=== PATIENT | male | born 1960 | race Caucasian/White ===

== ENCOUNTER → 2023-11-26 16:48 | Outpatient (REF) | payer OTHER, SELFPAY | LOC: RAD 16:48 | PROVIDERS: ATTENDING PHYSICIAN Specialist; FAMILY PHYSICIAN Family Medicine | DX: R33.8 Other retention of urine (principal) | CPT/HCPCS: 76770 ==

== ENCOUNTER 2023-12-08 16:56 | Emergency (ER) | payer OTHER, SELFPAY ==
[2023-12-08 17:17] VITALS: BP 151/96
--- NOTE | 2023-12-08 19:48 | ED.MUSCINJ ---
HPI-Injury
General
Chief Complaint: Musculo-Skeletal Complaint
Source: patient
Exam Limitations: none
Time Seen by Provider: 12/08/23 19:29
Nursing documentation reviewed up to this point in time: agreed with
History of Present Illness-Injury
Initial Injury comments:
63 yo male fell 4-5 ft from ladder landing on rubber mat on concrete floor of gym at 3 p.m. Did not hit head, fell back and struck right elbow on floor. Has pain in the elbow. Denies any other injury.
Past History
Past History
ED Past Medical History: HTN, Psychiatric (depression, anxiety), Other (MRSA) and Other (depression, recently diagnosed low testosterone, kidney stones, renal insufficiency, anxiety, depression)
ED Past Surgical History: Orthopedic (Biceps tendon surgery, bilateral torn quads repaired.)
Social History
Tobacco: Non-smoker
Alcohol: Former
Drug: None
Personal:
Living: with family
Employment: Employed
Family History
Family History: Other (Sister had a stroke at age 50, father has had a history of prostatic cancer)
Review of Systems
Review of Systems
Allergies reviewed?: Yes
All Other Systems: ROS reviewed and negative except as documented in HPI and ROS
Musculoskeletal: Reports other (right elbow pain)
Skin: Reports no symptoms
Neurological: Denies weakness or numbness
Phy Exam
Physical Exam
Physical Exam:
PHYSICAL EXAMINATION:
General: no apparent distress, not acutely ill
Neuro: alert and oriented.
Psychiatric: well kept. interactive and cooperative
Musculoskeletal: Tender and mild swelling right elbow. Full ROM of RUE. Distal neuro vascular intact. Moves with ease
Skin: Warm, pink.
Injury Course
Orders/Labs/Results
Orders:
Orders
12/08/23 16:57
Elbow, 3 View, Right [CR Elbow - Right Min 3 Views] Urgent
Comment:
Reason For Exam: pain, swelling
MDM/Problems Addressed
MDM/Problems Addressed:
63 yo male fell 4-5 ft from ladder landing on rubber mat on concrete floor of gym at 3 p.m. Did not hit head, fell back and struck right elbow on floor. Has pain in the elbow. Denies any other injury.
Xray right ankle: radiology report read: IMPRESSION: No radiographic evidence for acute fracture or dislocation.
There is a moderate sized spur/enthesophyte arising from the olecranon process. There is soft tissue swelling dorsal to the olecranon process, which could represent contusion and/or olecranon bursitis.
Pt with good ROM, no need for sling. He has seen Dr. Choe in the past and will f/u as needed.
*Critical Care Note
Total Time (30-74mins, 75-104mins- exclusive of procedures): Not Applicable
ED Attending Note
-
Portions of this chart may have been created with voice recognition software.� Occasional wrong word or��sound alike� substitutions may have occurred due to the inherent limitations of voice recognition software.
Discharge Plan
Departure
Patient Disposition: Home (Routine Discharge)
Date of Disposition: 12/08/23
Time of Disposition: 19:58
Patient with high blood pressure during this ER visit?: No
Condition: Good
Discharge Problem:
Contusion of right elbow
Instructions: Contusion (DC), Using Cold for Pain
Prescriptions:
No Action
lisinopril 10 MG tablet
10 mg PO QPM
omeprazole 20 mg Capsule,Delayed Release(Dr/Ec)
20 mg PO QPM
escitalopram oxalate [Lexapro] 20 mg Tablet
20 mg PO QPM
clonidine HCl 0.1 mg Tablet
0.1 mg PO DAILY 3 Days Qty: 3 0RF
Refresh Classic (PF) 1.4-0.6 % Dropperette
1 drp ophthalmic (eye) QIDPRN PRN (Reason: dryness) 30 Days Qty: 1 0RF
montelukast 10 mg Tablet
10 mg PO QPM 30 Days Qty: 30 0RF
ketotifen fumarate [Zaditor] 0.025 % (0.035 %) Drops
1 drp ophthalmic (eye) BID PRN (Reason: allergy symptoms) Qty: 5 0RF
magnesium oxide 500 mg capsule
500 mg PO DAILY Qty: 30 0RF
Referrals:
Dakota Arroyo MD [Family Provider] -
Scott Choe MD [Active] - As needed
Activity Restrictions/Additional Instructions:
As we discussed, our xray shows nothing broken.
Interventions
Interventions:
*General Assessment Last Done: 12/08/23 20:16
*Nursing Disposition Last Done: 12/08/23 20:16
ED-Musculoskeletal Assessment Last Done: 12/08/23 19:30
Discharge Date and Time
Discharge Date/Time: 12/08/23 20:16
Print Language: SLOVAK
== END 2023-12-08 20:16 | disposition home or self-care (01) ==
LOC: EMR 16:56
PROVIDERS: EMERGENCY PHYSICIAN Emergency Medicine; FAMILY PHYSICIAN Family Medicine
DX: S50.01XA Contusion of right elbow, initial encounter (principal); W11.XXXA Fall on and from ladder, initial encounter; I10 Essential (primary) hypertension
CPT/HCPCS: 99283; 73080

== ENCOUNTER 2023-12-17 06:44 | Day surgery (SDC) | payer OTHER, SELFPAY ==
[2023-12-16 08:41] VITALS: BMI 28.5
[2023-12-16 08:51] LABS: Hematocrit 44.6 % (39.0-52.0); Hemoglobin 15.4 g/dL (13.0-18.0); Mean Corp Hgb Conc. 34.5 g/dL (33.0-37.0); Mean Corpuscular Hgb 31.5 pg (27.0-31.0); Mean Corpuscular Volume 91.2 fL (80.0-94.0); Mean Platelet Volume 9.9 fL (7.4-10.4); Platelet Count 245 10^3/uL (130-400); Red Blood Cell Count 4.89 10^6/uL (4.70-6.10); Red Cell Dist. Width 12.2 % (11.5-14.5); White Blood Cell Count 8.3 10^3/uL (4.8-10.8)
[2023-12-17] VITALS (8 sets, daily range): BP systolic 131–153; BP diastolic 83–96; BMI 28.5
[2023-12-17] MEDS: CELEBREX 200 MG PO (11:20)
[2023-12-17] MEDS: TYLENOL 1000 MG PO (11:21)
[2023-12-17] MEDS: DILAUDID 0.25 MG IV ×2 (14:14→14:27)
== END 2023-12-17 15:30 | disposition home or self-care (01) ==
LOC: SDS 06:44
PROVIDERS: ATTENDING PHYSICIAN Orthopaedic Surgery Hand Surgery; FAMILY PHYSICIAN Family Medicine
DX: S46.311A Strain of muscle, fascia and tendon of triceps, right arm, initial encounter (principal); X58.XXXA Exposure to other specified factors, initial encounter; M70.21 Olecranon bursitis, right elbow
CPT/HCPCS: 24342; 24105; 85027; 87070; 93005; C1713

== ENCOUNTER → 2024-01-20 13:04 | Outpatient (REF) | payer OTHER, SELFPAY | LOC: EMG 13:04 | PROVIDERS: ATTENDING PHYSICIAN Physical Medicine & Rehabilitation; FAMILY PHYSICIAN Family Medicine | DX: M54.16 Radiculopathy, lumbar region (principal); R20.0 Anesthesia of skin; R20.2 Paresthesia of skin; R29.898 Other symptoms and signs involving the musculoskeletal system | CPT/HCPCS: 95886; 95911 ==

== ENCOUNTER → 2024-03-01 07:08 | Outpatient (REF) | payer OTHER, SELFPAY | LOC: MRI 3T 07:08 | PROVIDERS: ATTENDING PHYSICIAN Physical Medicine & Rehabilitation; FAMILY PHYSICIAN Family Medicine | DX: M54.16 Radiculopathy, lumbar region (principal) | CPT/HCPCS: 72148 ==

== ENCOUNTER 2024-03-03 18:51 | Outpatient (RCR) | payer OTHER, SELFPAY | END 2024-03-03 23:59 | disposition home or self-care (01) | LOC: RPT 18:51 | PROVIDERS: ATTENDING PHYSICIAN Orthopaedic Surgery Hand Surgery; FAMILY PHYSICIAN Family Medicine | DX: S46.311D Strain of muscle, fascia and tendon of triceps, right arm, subsequent encounter (principal) | CPT/HCPCS: 97110; 97140; 97162; 97535 ==

== ENCOUNTER → 2024-05-10 20:03 | Outpatient (REF) | payer OTHER, SELFPAY | LOC: MRI 3T 20:03 | PROVIDERS: ATTENDING PHYSICIAN Specialist; FAMILY PHYSICIAN Family Medicine | DX: R97.20 Elevated prostate specific antigen [PSA] (principal) | CPT/HCPCS: 72197; A9575 ==

== ENCOUNTER 2024-07-07 06:19 | Day surgery (SDC) | payer OTHER, SELFPAY ==
[2024-07-02 13:24] VITALS: BMI 29.7
[2024-07-02 14:13] LABS: Hematocrit 45.8 % (39.0-52.0); Mean Corp Hgb Conc. 34.9 g/dL (33.0-37.0); Mean Corpuscular Hgb 33.3 pg (27.0-31.0); Mean Corpuscular Volume 95.2 fL (80.0-94.0); Mean Platelet Volume 10.2 fL (7.4-10.4); Platelet Count 224 10^3/uL (130-400); Red Blood Cell Count 4.81 10^6/uL (4.70-6.10); Red Cell Dist. Width 13.2 % (11.5-14.5); White Blood Cell Count 8.4 10^3/uL (4.8-10.8)
[2024-07-02 14:48] LABS: ALT (SGPT) 49 U/L (0-50); AST (SGOT) 42 U/L (17-59); Albumin 4.5 g/dl (3.5-5.0); Alkaline Phosphatase 39 U/L (38-126); Blood Urea Nitrogen 28 mg/dl (9-20); Calcium 9.7 mg/dl (8.4-10.2); Carbon Dioxide 28 mmol/L (22-30); Chloride 106 mmol/L (98-107); Estimated Creatinine Clearance 71 ml/min; Glucose 84 mg/dl (70-99); Potassium 4.5 mmol/L (3.5-5.1); Sodium 141 mmol/L (135-145); Total Bilirubin 0.6 mg/dl (0.2-1.3); eGFR > 60.00
[2024-07-07] VITALS (19 sets, daily range): BP systolic 87–157; BP diastolic 49–100; BMI 29.7
[2024-07-07] MEDS: METHOCARBAMOL 1500 MG PO (11:08)
[2024-07-07] MEDS: CELEBREX 200 MG PO (11:08)
[2024-07-07] MEDS: LYRICA 150 MG PO (11:08)
[2024-07-07] MEDS: TYLENOL 1000 MG PO ×2 (11:09→18:30)
[2024-07-07] MEDS: NORMOSOL-R/PLASMALYTE-A 1000 IV (11:16)
--- NOTE | 2024-07-07 16:14 | W.PN.UPDATE ---
Update Note
Progress Note Update
Lumbar stenosis with neurogenic claudication s/p L3-L5 lami�w/ [place] 07/07/24
DVT prophylaxis - b/l SCDs/TEDS
Dural tear - bedrest for now, HOB flat
- Will elevated HOB 10 degrees every hour as long as pt tolerates starting POD 1 0600
- HOLD PT and OT today
HTN - + parameters - monitor BP
GERD - add Pepcid HS
Peripheral neuropathy - continue home Gabapentin
- Consider switch to Lyrica
BPH w/ h/o urinary retention - continue Flomax HS
- Monitor PVRs
- Follows Dr. Regan
H/o narcotic and benzo addiction - minimize opioids as able
- Avoid benzos
Diverticulosis
Hemorrhoids
Nephrolithiasis
Fatty liver disease with h/o elevated LFTs
Seizure 07/2016 2* stopping Ativan abruptly
Testicular hypofunction
ED
MRSA infection 2* b/l infected tattoos (ELVIS 06/2015 and MEHNAZ 2014); 2 negative swabs since dx
Bipolar d/o
H/o hypomagnesemia
Alcohol dependence, in remission
--- NOTE | 2024-07-07 17:24 | SUR.PHASEI ---
david notes pacu flowsheet on paper until 1600 when meditech available. vss, medicated x2 for low back pain/pressure. Dressing dry log rolls side to side. keep HOB flat - dura tear. Patient understands. updated - aware waiting for bed.
sats 94- 100% on room air.
[2024-07-07] MEDS: ULTRAM 50 MG PO (18:32)
[2024-07-07] MEDS: WELLBUTRIN XL (24 hour extended release) 300 MG PO (18:41)
[2024-07-07] MEDS: DILAUDID 0.5 MG IV (19:43)
[2024-07-07] MEDS: FLOMAX 0.8 MG PO (20:29)
[2024-07-07] MEDS: NEURONTIN 300 MG PO (20:32)
[2024-07-07] MEDS: ZESTRIL 20 MG PO (20:33)
[2024-07-07] MEDS: PEPCID 20 MG PO (20:33)
[2024-07-07] MEDS: ANCEF 5 IV (20:34)
[2024-07-07] MEDS: COLACE PO (20:35)
[2024-07-07] MEDS: ROXICODONE 10 MG PO (20:44)
[2024-07-07] MEDS: BUSPAR PO (22:32)
[2024-07-08 03:20] VITALS: BP 116/79
[2024-07-08] MEDS: TYLENOL 1000 MG PO ×2 (03:36→11:32)
[2024-07-08] MEDS: ANCEF 5 IV (03:36)
[2024-07-08] MEDS: ULTRAM 50 MG PO ×2 (03:36→08:59)
[2024-07-08] MEDS: NORMOSOL-R/PLASMALYTE-A 1000 IV (03:57)
[2024-07-08 07:17] VITALS: BP 121/74
[2024-07-08 07:31] LABS: Hematocrit 42.9 % (39.0-52.0); Hemoglobin 14.8 g/dL (13.0-18.0)
[2024-07-08 08:12] LABS: Blood Urea Nitrogen 21 mg/dl (9-20); Calcium 8.6 mg/dl (8.4-10.2); Carbon Dioxide 28 mmol/L (22-30); Chloride 105 mmol/L (98-107); Estimated Creatinine Clearance 85 ml/min; Glucose 130 mg/dl (70-99); Potassium 3.9 mmol/L (3.5-5.1); Sodium 137 mmol/L (135-145); eGFR > 60.00
[2024-07-08] MEDS: NORMOSOL-R/PLASMALYTE-A IV ×2 (08:56→11:39)
[2024-07-08] MEDS: NEURONTIN 300 MG PO ×2 (08:58→11:29)
[2024-07-08] MEDS: WELLBUTRIN XL (24 hour extended release) 300 MG PO (09:03)
[2024-07-08] MEDS: COLACE 100 MG PO (09:03)
[2024-07-08] MEDS: BUSPAR 30 MG PO (09:06)
--- NOTE | 2024-07-08 09:51 | CM ---
Cm reviewed medical records. Patient confirmed demographics. Patient lives independently with . Patient does not have a history of VN, SNF or DME. Patient is active with his PCP. Patient uses [facility] for medication services. Patient plans to use
[facility] when medically cleared.
PLAN: Home with outpatient PT when medically cleared.
--- NOTE | 2024-07-08 11:15 | W.PN.ORTHO ---
Today's Communication / Plan
-
Await PT and OT recs.
D/c later today if remaining clinically stable.
Assessment
.
Distal Motor Intact: Yes
Dressing:
Clean, dry and intact.
Assessment:
Lumbar stenosis with neurogenic claudication s/p L3-L5 lami�w/ [place] 07/07/24
DVT prophylaxis - b/l SCDs/TEDS
Dural tear - off of bedrest, HOB elevated and tolerating well
- Can work w/ PT and OT today
HTN - + parameters - BPs overall stable
GERD - added Pepcid HS
Peripheral neuropathy - continue home Gabapentin (dosing clarified as 600 mg TID NOT 300 mg TID)
- Consider switch to Lyrica
BPH w/ h/o urinary retention - continue Flomax HS
- Urinating appropriately by POD 1
H/o narcotic and benzo addiction - minimize opioids as able
- Avoid benzos
- After discussion w/ patient, would prefer short-term course of Tramadol over Oxycodone for acute post-op pain. I think this is reasonable given his recovery. Spouse to monitor usage
Diverticulosis
Hemorrhoids
Nephrolithiasis
Fatty liver disease with h/o elevated LFTs
Seizure 07/2016 2* stopping Ativan abruptly
Testicular hypofunction
ED
MRSA infection 2* b/l infected tattoos (MEGANE 06/2015 and MEHNAZ 2014); 2 negative swabs since dx
Bipolar d/o
H/o hypomagnesemia
Alcohol dependence, in remission
Plan
.
Surgery / Date: L3-L5 cobyi�w/ [place] 07/07/24
DVT Prophylaxis: Other (b/l SCDs/TEDS)
Activity:
Out of bed.
PT/OT
Discharge Plan: Home
Subjective
.
.:
Patient resting comfortably in bed this AM.
Reports 'tightness' around his back which is manageable with Tramadol and home Gabapentin.
B/l paraesthesias from hip to knee improved.
Denies any significant complaints. AM labs stable.
Eager for potential d/c today.
Vital Signs and Labs
.
Vital Signs and Labs:
Lab Results
07/08/24 06:59
07/08/24 06:59
Temp Pulse Resp BP Pulse Ox
98.6 F 88 16 121/74 98
07/08/24 07:17 07/08/24 07:17 07/08/24 07:17 07/08/24 07:17 07/08/24 07:17
Physical Exam
-
HEENT: No pallor, cyanosis, or jaundice. Throat clear.
NECK: Supple. No JVD.
RESPIRATORY: Lungs clear to auscultation.
CVS: S1, S2 normal. RRR.�
ABDOMEN: Soft, non-tender. No distension.
EXTREMITIES: Strength equal, no calf pain with palpation/dorsiflexion. Calves soft.
SENIOR DIRECTOR: AOx3. No focal deficits. citrus fruit packer grossly intact
[2024-07-08 11:35] VITALS: BP 111/68
--- NOTE | 2024-07-08 11:38 | W.DS.TRANS ---
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
-
Discharge Instructions:
Discharge Diagnosis/Procedures Lumbar stenosis with neurogenic claudication s/p
L3-L5 [place]ami w/ Dr [facility] [place] 07/07/24
Diet Regular
Additional Diets Adequate hydration advised to prevent low blood
pressure readings.
Activity As tolerated
Additional Activity No heavy lifting >10 lbs
Driving Restrictions Not until seen by your Dr
Bathing Restrictions OK to shower in 4 days.
Instructions:
Stand-Alone Forms: [place] Lumbar D/C Inst.
Changes to Home Medications: Yes
Discharge Medications:
DC Medications w/original date entered in [employer]
Botox 1 unit BOTH EYES [id number] 12/15/23
bupropion HCl 300 mg 24 hr tablet, extended release (Wellbutrin XL) 300 mg PO DAILY 12/15/23
buspirone 30 mg tablet 30 mg PO BID 06/30/24
magnesium 500 mg tablet 500 mg PO DAILY 07/07/24
Saccharomyces boulardii 250 mg capsule (Florastor) 250 mg PO BID #10 caps 07/08/24
acetaminophen 500 mg tablet (Tylenol Extra Strength) 1,000 mg (2 x 500 mg) PO Q8H #60 tabs 07/08/24
cephalexin 500 mg capsule 500 mg PO QID #20 caps 07/08/24
docusate sodium 100 mg capsule 100 mg PO BID #30 caps 07/08/24
gabapentin 300 mg capsule 600 mg (2 x 300 mg) PO TID neuropathic pain #60 caps 07/08/24
lisinopril 20 mg tablet 20 mg PO HS #1 tab 07/08/24
ondansetron HCl 4 mg tablet 4 mg PO Q6H PRN nausea and vomiting #30 tabs 07/08/24
polyvinyl alcohol-povidone (PF) 1.4 %-0.6 % eye drops in a dropperette (Refresh Classic (PF)) 1 drp ophthalmic (eye) DAILYPRN PRN dry eyes #30 ea 07/08/24
sennosides 8.6 mg tablet (Renetta-paras) 17.2 mg (2 x 8.6 mg) PO BID #30 tabs 07/08/24
tamsulosin 0.4 mg capsule (Flomax) 0.8 mg (2 x 0.4 mg) PO HS #1 cap 07/08/24
tramadol 50 mg tablet 50 - 100 mg (1 - 2 x 50 mg) PO Q6H moderate-severe pain #30 tabs 07/08/24
Home Medication Changes
Saccharomyces boulardii 250 mg capsule (Florastor) 250 mg PO BID #10 caps 07/08/24
acetaminophen 500 mg tablet (Tylenol Extra Strength) 1,000 mg (2 x 500 mg) PO Q8H #60 tabs 07/08/24
cephalexin 500 mg capsule 500 mg PO QID #20 caps 07/08/24
docusate sodium 100 mg capsule 100 mg PO BID #30 caps 07/08/24
gabapentin 300 mg capsule 600 mg (2 x 300 mg) PO TID neuropathic pain #60 caps 07/08/24
ondansetron HCl 4 mg tablet 4 mg PO Q6H PRN nausea and vomiting #30 tabs 07/08/24
sennosides 8.6 mg tablet (Renetta-paras) 17.2 mg (2 x 8.6 mg) PO BID #30 tabs 07/08/24
tramadol 50 mg tablet 50 - 100 mg (1 - 2 x 50 mg) PO Q6H moderate-severe pain #30 tabs 07/08/24
Pending Results: Yes (PTH surgical specimen)
[2024-07-08 13:06] VITALS: BP 102/70; BP 103/67; BP 107/64; BP 113/71; PULSE 88; PULSE 89; O2SAT 94; O2SAT 97
== END 2024-07-08 13:59 | disposition home or self-care (01) ==
LOC: SDS 06:19
PROVIDERS: Physician Assistant; ATTENDING PHYSICIAN Orthopaedic Surgery Orthopaedic Surgery of the Spine; FAMILY PHYSICIAN Family Medicine
DX: M43.16 Spondylolisthesis, lumbar region (principal); M48.062 Spinal stenosis, lumbar region with neurogenic claudication; M71.38 Other bursal cyst, other site; F10.21 Alcohol dependence, in remission; F11.11 Opioid abuse, in remission; E29.1 Testicular hypofunction; Z92.241 Personal history of systemic steroid therapy
CPT/HCPCS: 22612; 63047; C1713; C1776; 88304; 88311; 36415; 72100; 76000; 80048; 80053; 85014; 85018; 85027; 86850; 86900; 86901; 87070; 97116; 97162; 97167; 97530